=== PATIENT | female | born 1980 | race Caucasian/White ===

== ENCOUNTER 2019-05-20 22:13 | Emergency (ER) | payer OTHER ==
[~2019-05-20] VITALS: Ht 162.6 cm; Wt 99.8 kg
[2019-05-20 22:15] VITALS: BP 170/100
--- NOTE | 2019-05-20 23:12 | NUR ---
PT TAKEN TO BED 4
--- NOTE | 2019-05-20 23:23 | NUR ---
Dr. Herrmann examining patient.
--- NOTE | 2019-05-20 23:24 | NUR ---
38 YEAR OLD FEMALE COMPLAINS OF NOT HAVING A PERIOD SINCE March, THEN PERIOD STARTED WITH ALOT OF BLOOD AND SAW CHUNKS OF TISSUE IN PERIOD BLOOD. PATIENT COMPLAINS OF LOWER ABDOMINAL PAIN. BOWEL SOUNDS ACTIVE X4, NONTENDER, NONDISTENDED, TENDER IN LOWER QUADRANTS. PATIENT DENIES NAUSEA, VOMITTING. PATIENT AOX4, BREATHING EVEN AND UNLABORED, SKIN WARM AND DRY. BED IN LOWEST POSITION, LOCKED, BED RAIL UPX1. PMH - THYROID CANCER, ASTHMA ALLERGIES - NKA
[2019-05-20] MEDS ORDERED: NACL 0.9% 1,000 ML IV ONE (23:35)
[2019-05-20 23:48] LABS: BASOPHILS % (AUTO) 0.3 % (0.0-2.0); EOSINOPHILS # (AUTO) 0.1 K/uL (0-0.4); EOSINOPHILS % (AUTO) 1.8 % (0.0-4.0); HEMOGLOBIN 13.2 g/dL (12.0-16.0); LYMPHOCYTES # (AUTO) 2.1 K/uL (2.5-16.5); LYMPHOCYTES % (AUTO) 30.6 % (20.5-51.1); MEAN CORPUSCULAR HEMOGLOBIN 31 pg (27-31); MEAN CORPUSCULAR HGB CONC 35 g/dL (33-37); MEAN CORPUSCULAR VOLUME 89.3 fL (80-94); MONOCYTES # (AUTO) 0.5 K/uL (0.8-1.0); MONOCYTES % (AUTO) 7.7 % (1.7-9.3); NEUTROPHILS # (AUTO) 4.2 K/uL (1.8-7.7); NEUTROPHILS % (AUTO) 59.6 % (42.2-75.2); PLATELET COUNT (AUTO) 281 K/uL (140-450); RED BLOOD CELL COUNT(AUTO) 4.25 MIL/uL (4.20-5.40); RED CELL DISTRIBUTION WIDTH 14.1 % (11.6-13.7)
[2019-05-21] LABS: ANION GAP 9.5 (8-16); CARBON DIOXIDE 27.5 mmol/L (21-32); CREATININE 0.7 mg/dL (0.6-1.3)
[2019-05-21 02:00] VITALS: BP 150/99
--- NOTE | 2019-05-21 02:00 | NUR ---
Patient discharged with v/s stable. Written and verbal after care instructions about dysmenorrhea given and explained. Patient verbalized understanding. Ambulatory with steady gait. All questions addressed prior to discharge. Advised to follow up with PMD.
== END 2019-05-21 02:00 | disposition home or self-care (01) ==
LOC: MED 22:13
DX: N94.6 Dysmenorrhea, unspecified (principal)
CPT/HCPCS: 36415; 76830; 80048; 81002; 81025; 84702; 85025; 86900; 86901; 96360; 99284; J7030; 99283